=== PATIENT | male | born 1960 | race Caucasian/White ===

== ENCOUNTER 2016-07-07 20:00 | Inpatient (IN) | payer MEDICAID ==
--- NOTE | ~2016-07-07 | HP ---
Unit #: [id number] #: [id number] Patient: CRISTO AGGARWAL [id number] [place] [address] [id number] I MR#: [id number] NAME: CRISTO AGGARWAL ROOM: 81 Age: 56 Sex: M Admission Date: 07/08/2016 : 1960 Attending Physician: Hernando Reis M.D. Admitting Physician: Hernando Reis M.D. Primary Care Physician: Generic Doctor Not In System HISTORY AND PHYSICAL HISTORY OF PRESENT ILLNESS Cristo is a 56-year-old male admitted on 07/08/2016 to [facility] for detox from alcohol. PAST MEDICAL HISTORY None. PAST SURGICAL HISTORY None. SOCIAL HISTORY He smokes one-half pack of cigarettes daily. Drinks 12-pack of beer daily. No illegal drug use. He is currently single and homeless. FAMILY HISTORY Noncontributory. REVIEW OF SYSTEMS CONSTITUTIONAL: No fever or chills. HEENT: Denies any sore throat, ear pain or runny nose. CARDIOVASCULAR: Denies chest pain, irregular heart rhythm or palpitations. CHEST: Denies shortness of breath or cough. No hemoptysis. GASTROINTESTINAL: Denies nausea, vomiting, diarrhea or chronic constipation. ENDOCRINE: Denies history of increased thirst or urination. No recent significant weight loss or gain. GENITOURINARY: Denies dysuria, frequency, or hematuria. SKIN: Denies any rashes. HEMATOLOGIC: Denies history of increased bleeding or bruising. MUSCULOSKELETAL: Denies any hot, swollen joints. No generalized muscle pain. NEUROLOGIC: Denies problems with vision or speech. No frequent, severe headaches. No numbness, tingling or weakness in any extremities. Denies loss of bladder or bowel control. CURRENT MEDICATIONS None. ALLERGIES None. Unit #: [id number] #: [id number] Patient: CRISTO AGGARWAL PHYSICAL EXAMINATION GENERAL: Alert, oriented, in no acute distress. VITAL SIGNS: Blood pressure 147/82, heart rate 62, respirations 18, temperature 97.6. HEIGHT: 6 foot 1 inches. WEIGHT: 175 pounds. SKIN: Warm and dry without rash or lesion. HEENT: Normocephalic. TMs not viewed. Oral and nasal passages clear. Conjunctivae clear. PERRLA. EOMs intact. NECK: Supple without lymphadenopathy or thyromegaly. HEART: Regular rate and rhythm without murmur. LUNGS: Clear. ABDOMEN: Soft, nontender, without masses or hepatosplenomegaly. : Not done. EXTREMITIES: No evidence of cyanosis, clubbing or edema. Moves all without focal deficit. NEUROLOGICAL: Grossly within normal limits. Cranial Nerves: II: Visual ramsey are intact. III, IV AND : Extraocular movements are intact. Pupils are equal, round and reactive to light. V: Facial sensation is grossly normal. VII: Facial movements and expression are normal. VIII: Auditory acuity grossly intact. IX, X: Uvula is midline. Phonation is normal. XI: Patient shrugs shoulders and turns head normally. XII: Tongue protrudes in the midline. Sensory and Motor Function: Sensory and motor sensation is grossly normal. Motor: moves all extremities well. Coordination: Gait is normal. Deep Tendon Reflexes: Intact. IMPRESSION Psychiatric admission. RECOMMENDATIONS Psychiatric, per psychiatrist. MEDICAL: I see no contraindications to participating in facility's activities. MEDICAL PROGNOSIS Good. MEDICAL CONDITION Stable. Dictated by... Jayesh Diop/sophy TD: 07/09/2016 04:16 JOB #: [id number] Unit #: [id number] #: [id number] Patient: CRISTO AGGARWAL HISTORY AND PHYSICAL Page 1 of 1 X LIZ SIMS APRN X HISTORY AND PHYSICAL
--- NOTE | ~2016-07-07 | PN ---
Unit #: [id number] #: [id number] Patient: CRISTO AGGARWAL [id number] [facility] [address] [place] [address] [id number] I MR#: [id number] NAME: CRISTO AGGARWAL ROOM: [facility] Age: 56 Sex: M Admission Date: 07/08/2016 : 1960 Attending Physician: Hernando Reis M.D. Admitting Physician: Hernando Reis M.D. Primary Care Physician: Generic Doctor Not In System [facility] PROGRESS NOTES DATE 07/09/2016 DISCUSSION Mr. Cristo Aggarwal is a 56-year-old male seen on 07/09/2016. The patient interviewed, chart reviewed. Obtained information from nursing staff. The patient needing one to one monitoring. Still having shakes, withdrawal symptoms from alcohol. The patient guarded, flat affect, sad, dysphoric mood. The patient was able to participate in some group but needing one to one monitoring for safety. Complete review of systems unremarkable. MENTAL STATUS EXAMINATION General appearance, the patient dressed casually. Attention span and concentration fair. Oriented to place and person. Mood and affect labile. Speech monotone. Thought process concrete. The patient denied any thoughts of harming self or others. Recent and remote memory poor. Insight and judgement poor. DIAGNOSES Alcohol use disorder severe Mood disorder NOS ASSESSMENT/PLAN Advise to continue with current medication and therapeutic protocol. If needed consider further adjustment of medication. Dictated by... Meena Adame/sophy TD: 07/10/2016 21:59 JOB #: [id number] Unit #: [id number] #: [id number] Patient: CRISTO AGGARWAL PROGRESS NOTES Page 1 of 1 X Hernando Reis MD PROGRESS NOTE
--- NOTE | ~2016-07-07 | DS ---
Unit #: [id number] #: [id number] Patient: CRISTO AGGARWAL [id number] [facility] [address] [place] [address] [id number] I MR#: [id number] NAME: CRISTO AGGARWAL ROOM: [facility] Age: 56 Sex: M Admission Date: 07/08/2016 : 1960 Discharge Date: 07/12/2016 Attending Physician: Hernando Reis M.D. Primary Care Physician: Generic Doctor Not In System DISCHARGE SUMMARY REASON FOR ADMISSION Substance abuse, alcohol abuse. DIAGNOSTIC STUDIES LABORATORY RESULTS: Remarkable for urine drug screen positive for benzos, BUN 8, AST 45. HOSPITAL COURSE The patient was admitted to inpatient unit on 07/08/2016 and discharged on 07/12/2016. The patient was treated on the inpatient unit with chemical dependency group, expressive therapy, medication management, psychoeducation, psychotherapy, and structured milieu. The patient participated in treatment, able to maintain safe behavior, completed detox. Subsequently, the patient was discharged with a plan to follow up in outpatient program. DISCHARGE MEDICATIONS None. DISCHARGE DIAGNOSES Psychiatric: Alcohol use disorder, severe, F10.20; mood disorder, not otherwise specified, F32.9. Secondary diagnosis: Deferred. Medical diagnosis: None. Stressors: Psychosocial stressors. DISCHARGE INSTRUCTIONS The patient to follow up in outpatient clinic as per social media specialist. CONDITION ON DISCHARGE The patient was pleasant and cooperative. Denied any psychotic symptom or any suicidal ideation. PROGNOSIS Guarded. DIET AND ACTIVITY As tolerated. Unit #: [id number] #: [id number] Patient: CRISTO AGGARWAL Dictated by... Meena Adame/ana TD: 07/12/2016 15:58 JOB #: [id number] DISCHARGE SUMMARY Page 1 of 1 X Hernando Reis MD X DISCHARGE SUMMARY
--- NOTE | ~2016-07-07 | PN ---
Unit #: [id number] #: [id number] Patient: CRISTO AGGARWAL [id number] [facility] [address] [place] [address] [id number] I MR#: [id number] NAME: CRISTO AGGARWAL ROOM: [facility] Age: 56 Sex: M Admission Date: 07/08/2016 : 1960 Attending Physician: Hernando Reis M.D. Admitting Physician: Hernando Reis M.D. Primary Care Physician: Generic Doctor Not In System [facility] PROGRESS NOTES DATE 07/10/2016 DISCUSSION Cristo Aggarwal is a 56-year-old male seen on 07/10/2016. Patient interviewed. Chart reviewed. Obtained information from nursing staff. Patient currently has one to one monitoring due to fall precaution. Vital signs stable. Patient withdrawn, isolative, flat affect, eating good, sleeping good. Patient was able to attend some group. If doing well, plan to consider dc'ing one to one. Complete review of system unremarkable. MENTAL STATUS EXAMINATION General appearance, patient dressed casually. Attention span, concentration fair. Oriented in place and person. Mood and affect sad, dysphoric. Speech monotone. Thought process concrete. Patient denied any thoughts of harming self or others. Recent and remote memory poor. Insight and judgement poor. DIAGNOSES 1. Alcohol use disorder, severe. 2. Mood disorder NOS. ASSESSMENT/PLAN Advised to continue with current medication and therapeutic protocol. If needed, consider further adjustment of medication. Dictated by... Meena Adame/bunny TD: 07/11/2016 18:43 JOB #: [id number] Unit #: [id number] #: [id number] Patient: CRISTO AGGARWAL PROGRESS NOTES Page 1 of 1 X Hernando Reis MD PROGRESS NOTE
--- NOTE | ~2016-07-07 | PN ---
Unit #: [id number] #: [id number] Patient: CRISTO AGGARWAL [id number] [facility] [address] [place] [address] [id number] I MR#: [id number] NAME: CRISTO AGGARWAL ROOM: [facility] Age: 56 Sex: M Admission Date: 07/08/2016 : 1960 Attending Physician: Hernando Reis M.D. Admitting Physician: Meena Adame PROGRESS NOTES DATE OF SERVICE: 07/11/2016 DISCUSSION Cristo Aggarwal is a 56-year-old male, seen on 07/11/2016. The patient interviewed, chart reviewed, and obtained information from nursing staff. The patient tolerating medication fairly well and making progress. Reports decrease in withdrawal symptoms and decrease in tremors. The patient sleeping good. Vital signs; temperature 97.4, heart rate 90, respiratory rate 16, and blood pressure 129/86. REVIEW OF SYSTEMS Complete review of systems unremarkable. MENTAL STATUS EXAMINATION General appearance, the patient dressed casually. Attention span and concentration, fair. Oriented in place and person. Mood and affect, labile. Speech, monotone. Thought process, concrete. The patient denied any thoughts of harming self or others. Recent and remote memory, poor. Insight and judgment, poor. DIAGNOSES Alcohol use disorder, severe and mood disorder, not otherwise specified. ASSESSMENT AND PLAN Advised to continue with current medication and therapeutic protocol. If needed, consider further adjustment of medication. Dictated by... Meena Adame/ana TD: 07/13/2016 14:07 JOB #: [id number] Unit #: [id number] #: [id number] Patient: CRISTO AGGARWAL PROGRESS NOTES Page 1 of 1 X Hernando Reis MD NOTE
--- NOTE | ~2016-07-07 | PA ---
Unit #: [id number] #: [id number] Patient: CRISTO AGGARWAL [id number] [place] [address] [id number] MR#: [id number] NAME: CRISTO AGGARWAL ROOM: [facility] Age: 56 Sex: M Admission Date: 07/08/2016 : 1960 Date of Assessment: Attending Physician: Hernando Reis M.D. Admitting Physician: Hernando Reis M.D. Primary Care Physician: Generic Doctor Not In System PSYCHIATRIC ASSESSMENT INFORMANTS The patient reliability, fair informant; chart reliability, good. CHIEF COMPLAINT Alcohol abuse and withdrawal. HISTORY OF PRESENT ILLNESS Mr. Castellon is a 56-year-old white male, presented with the above-mentioned complaint. [facility], currently homeless, unemployed. Reported needing help with drinking. The patient reported needing detox. The patient reports that he would like to go and live in a sober living with support. The patient reported drinking at least 12 or more beers. Denied any suicidal or homicidal ideation. Denied any psychotic symptom. The patient reported tobacco use, age of onset 17; alcohol, age of onset 21. Longest period of sobriety five days, last period of sobriety 11/2015. The patient denied any history of any black out, HIV, hepatitis, or any IV drug use, but reported headaches, sleep problem, tremor, poor concentration, depressed mood, restlessness. PAST PSYCHIATRIC HISTORY Remarkable for history of outpatient treatment through [facility], [facility], AA meeting. FAMILY HISTORY Unremarkable for any psychiatric illness in the family. No known history of any abuse. SOCIAL HISTORY The patient currently unemployed, homeless. MEDICAL HISTORY Remarkable for history of withdrawal seizures. Musculoskeletal; muscle strength and tone, no atrophy or abnormal movement. Gait normal. MEDICATION HISTORY None. ALLERGIES No known drug allergies. SUBSTANCE ABUSE HISTORY Please see above. Unit #: [id number] #: [id number] Patient: CRISTO AGGARWAL REVIEW OF SYSTEMS HEENT: Eyes; clear. Ears, nose, mouth, and throat; clear. CARDIOVASCULAR: Unremarkable. RESPIRATORY: Unremarkable. GI: Unremarkable. : Unremarkable. SKIN: Unremarkable. LYMPH NODE: Unremarkable. NEUROLOGIC: Unremarkable. ENDOCRINE: Unremarkable. HEMATOLOGIC: Unremarkable. ALLERGIC/IMMUNOLOGIC: Unremarkable. MUSCULOSKELETAL: Muscle strength and tone, no atrophy or abnormal movement. Gait abnormal and gross tremors. MENTAL STATUS EXAMINATION CONSTITUTIONAL: Measurement of vital signs; temperature 97.6, pulse 62, respiratory rate 18, blood pressure 147/82, height 6 feet 1 inch, weight 175 pounds. GENERAL APPEARANCE: The patient dressed casually. The patient did not show any facial deformity. MUSCULOSKELETAL: Please see above. PSYCHIATRIC EXAMINATION Description of speech is slow. Description of thought process, circumstantial. Description of association, guarded. Description of abnormal psychotic thinking; the patient denied any hallucination or delusions, but mood lability and substance abuse. Description of the patient's judgment, concerning everyday activity, poor. Social situation, poor. Concerning psychiatric condition, poor. Complete mental status examination; oriented in time, place, and person. Recent and remote memory, fair. Attention span and concentration, fair. Language; able to name object and repeat phrases. Fund of knowledge, aware of current event and past history. Vocabulary, intact. Mood and affect; sad and dysphoric. Insight and judgment, fair to poor. ASSETS AND LIABILITIES Assets, the patient is articulate and able to take care of his ADL. Liability, history of substance abuse and depression. ADMITTING DIAGNOSES Psychiatric: Alcohol use disorder, severe, F10.20; mood disorder, not otherwise specified, F32.9. Secondary diagnosis: Deferred. Medical diagnosis: None. Stressors: Psychosocial stressor. PSYCHIATRIC PLAN 1. Advised to admit the patient on the inpatient unit. Provide safe, supportive, and structured environment. 2. Ordered labs; CBC, CMP, UA, and UDS. 3. Medical consult to evaluate the patient's medical condition. 4. Detox protocol, detox monitoring, one-to-one monitoring for the patient's safety. Unit #: [id number] #: [id number] Patient: CRISTO AGGARWAL TREATMENT GOAL To attain euthymic mood, gain insight into his problem, and learn coping skills. DISCHARGE PLAN Plan to stabilize the patient and consider followup in outpatient program. ESTIMATED LENGTH OF STAY 5 days. Dictated by... Hernando Reis M.D. MONIK/ana TD: 07/08/2016 21:06 JOB #: [id number] PSYCHIATRIC ASSESSMENT Page 1 of 1 X Smiley,Hernando STEVENS X PSYCHIATRIC ASSESSMENT
[2016-07-08 11:24] LABS: BASOPHIL% 1.2 % (0-2.5); EOSINOPHIL# 0.1 X10e3 (0-0.7); EOSINOPHIL% 2.9 % (0.0-7.0); HEMATOCRIT 39.4 % (38.0-50.0); HEMOGLOBIN 13.1 gm/dL (13.0-16.0); LYMPHOCYTE# 1.6 X10e3 (1.0-3.5); LYMPHOCYTE% 43.4 % (17.0-45.0); MEAN CELL VOLUME 99.6 FL (83-96); MEAN CORPUSCULAR HGB CONC 33.2 g/dL (30-36); MEAN PLATELET VOLUME 9.2 FL (6.5-11.5); MONOCYTE# 0.5 X10e3 (0-1.0); MONOCYTE% 14.1 % (3.0-12.0); NEUTROPHIL# 1.4 X10e3 (1.5-7.1); NEUTROPHIL% 38.4 % (40-75); PLATELET COUNT 136 X10e3 (140-420); RED BLOOD COUNT 3.96 X10e (3.90-5.60); RED CELL DISTRIBUTION WIDTH 13.4 % (11.0-15.5); WHITE BLOOD COUNT 3.7 X10e3 (4.0-10.5)
[2016-07-08 11:35] LABS: DIFF IND NO
[2016-07-08 11:52] LABS: BILIRUBIN,TOTAL 0.7 mg/dL (0.2-2.0); BUN/CREATININE RATIO 11.42; CALCIUM SERUM 8.6 mg/dL (8.4-10.2); CREATININE SERUM 0.7 mg/dL (0.6-1.4); GLOM FILT RATE Estimated 104.8 mL/min (>60); POTASSIUM 3.7 mmol/L (3.5-5.1)
[2016-07-10 09:41] LABS: URINE APPEARANCE CLEAR; URINE BILIRUBIN NEG (NEG); URINE BLOOD NEG (NEG); URINE COLOR DK YELLOW; URINE GLUCOSE NEG (NEG); URINE KETONE NEG (NEG); URINE LEUKOCYTE ESTERASE NEG (NEG); URINE NITRATE NEG (NEG); URINE PH 6.5 (5-8); URINE PROTEIN NEG (NEG); URINE SPECIFIC GRAVITY 1.017 (1.003-1.035)
[2016-07-10 09:54] LABS: AMPHETAMINE NEG (NEG); BARBITURATES NEG (NEG); BENZODIAZEPINES POS (NEG); COCAINE NEG (NEG); MARIJUANA NEG (NEG); OPIATES NEG (NEG); TRICYCLIC ANTIDEPRESSANTS NEG (NEG); U METHADONE NEG (NEG)
== END 2016-07-12 12:25 | DRG 897 ==
LOC: P1E 07-08 00:58
PROVIDERS: Psychiatry & Neurology Psychiatry
PROC: HZ2ZZZZ Detoxification Services for Substance Abuse Treatment (ICD-10-PCS; principal; 2016-07-08)
DX: F10.20 Alcohol dependence, uncomplicated (principal); F39 Unspecified mood [affective] disorder; Z59.0 Homelessness; F17.210 Nicotine dependence, cigarettes, uncomplicated
CPT/HCPCS: 80053; 80307; 81003; 85025; 86592

== ENCOUNTER 2016-08-07 | Inpatient (IN) | payer MEDICAID ==
--- NOTE | ~2016-08-07 | PN ---
Unit #: [id number] #: [id number] Patient: CRISTO BATRES [id number] [facility] [address] [place] [address] [id number] I MR#: [id number] NAME: CRISTO BATRES. ROOM: 74 Age: 56 Sex: M Admission Date: 08/07/2016 : 1960 Attending Physician: Hernando Reis M.D. Admitting Physician: Hernando Reis M.D. Primary Care Physician: Meena Ramos PROGRESS NOTES DATE OF SERVICE 08/10/2016 DISCUSSION Mr. Cristo Batres is a 56-year-old male seen on 08/10/2016. The patient interviewed, chart reviewed. Obtained information from nursing staff. The patient continues to be anxious, nervous, withdrawn, isolative. Hand tremors, but reports feeling overall better. The patient's vital signs: 98.4, pulse 119, blood pressure 119/84. Complete Review of Systems: Unremarkable. MENTAL STATUS EXAMINATION General Appearance: The patient dressed casually. Attention span, concentration: Fair. Oriented in place and person. Mood and affect labile. Speech: Monotone. Thought process: [place]. The patient denied any thoughts of harming self or others. Recent and remote memory: Poor. Insight and judgment: Poor. DIAGNOSIS Alcohol use disorder, severe. ASSESSMENT/PLAN Advised to continue with current medication and therapeutic protocol. If needed, consider further adjustment of medication. Dictated by... Meena Adame/rochelle TD: 08/11/2016 08:57 JOB #: [id number] Unit #: [id number] #: [id number] Patient: CRISTO BATRESOLIVA PROGRESS NOTES Page 1 of 1 X Hernando Reis MD X PROGRESS NOTE
--- NOTE | ~2016-08-07 | PN ---
Unit #: [id number] #: [id number] Patient: CRISTO AGGARWAL [id number] [facility] [address] [place] [address] [id number] I MR#: [id number] NAME: CRISTO AGGARWAL. ROOM: 74 Age: 56 Sex: M Admission Date: 08/07/2016 : 1960 Attending Physician: Hernando Reis M.D. Admitting Physician: Hernando Reis M.D. Primary Care Physician: Meena Ramos PROGRESS NOTES DATE OF SERVICE: 08/08/2016 DISCUSSION Mr. Cristo Villavicencio is a 56-year-old male, seen on 08/08/2016. The patient currently on detox protocol, still somewhat anxious, nervous, hand tremors. Vital signs; temperature 98.7, pulse 77, respirations 16, and blood pressure 100/65. The patient is withdrawn, isolative, flat affect. Complete review of systems unremarkable. MENTAL STATUS EXAMINATION General appearance, the patient dressed casually. Attention span and concentration, fair. Oriented in place and person. Mood and affect, labile. Speech, monotone. Thought process, concrete. The patient denied any thoughts of harming self or others, but guarded. Recent and remote memory, poor. Insight and judgment, poor. DIAGNOSES Alcohol use disorder, severe. ASSESSMENT AND PLAN Advised to continue with current detox protocol and treatment. If needed, consider further adjustment of medication. Dictated by... Meena Adame/ana TD: 08/08/2016 19:09 JOB #: [id number] [facility] PROGRESS NOTES Page 1 of 1 X Hernando Reis MD X PROGRESS NOTE
--- NOTE | ~2016-08-07 | PN ---
Unit #: [id number] #: [id number] Patient: CRISTO BATRES [id number] [facility] [address] [place] [address] [id number] I MR#: [id number] NAME: CRISTO BATRES. ROOM: [facility] Age: 56 Sex: M Admission Date: 08/07/2016 : 1960 Attending Physician: Hernando Reis M.D. Admitting Physician: Hernando Reis M.D. Primary Care Physician: Meena Ramos PROGRESS NOTES DATE OF SERVICE: 08/09/2016 DISCUSSION Mr. Cristo Batres is a 56-year-old male, seen on 08/09/2016. The patient interviewed, chart reviewed, and obtained information from nursing staff. The patient continues to be isolative, flat affect, sad, dysphoric, mildly tremulous. The patient reports still having withdrawal symptoms. Vital signs; temperature 97.9, pulse 101, blood pressure 115/84. REVIEW OF SYSTEMS Complete review of systems unremarkable. MENTAL STATUS EXAMINATION General appearance; the patient is dressed casually. Attention span and concentration, fair. Oriented in place and person. Mood and affect, labile. Speech, monotone. Thought process, concrete. The patient denied any thoughts of harming self or others. Recent and remote memory, poor. Insight and judgment, poor. DIAGNOSES 1. Alcohol use disorder, severe. 2. Mood disorder, not otherwise specified. ASSESSMENT/PLAN Advised to continue with current medication and therapeutic protocol. If needed, consider further adjustment of medication. Dictated by... Meena Adame/ana TD: 08/10/2016 01:52 JOB #: [id number] Unit #: [id number] #: [id number] Patient: CRISTO BATRES [facility] PROGRESS NOTES Page 1 of 1 X Hernando Reis MD PROGRESS NOTE
--- NOTE | ~2016-08-07 | PN ---
Unit #: [id number] #: [id number] Patient: CRISTO BATRES [id number] [facility] [address] [place] [address] [id number] I MR#: [id number] NAME: CRISTO BATRES. ROOM: [facility] Age: 56 Sex: M Admission Date: 08/07/2016 : 1960 Attending Physician: Hernando Reis M.D. Admitting Physician: Hernando Reis M.D. Primary Care Physician: Meena Ramos PROGRESS NOTES DATE 08/11/2016 DISCUSSION Mr. Cristo Batres is a 56-year-old male seen on 08/11/2016. Patient interviewed. Chart reviewed. Obtained information from nursing staff. Patient was compliant, cooperative, reported feeling better, decrease in anxiety, depression and tremors. Patient was able to sleep good. Compliant with medication. Currently on detox protocol. Complete review of system unremarkable. MENTAL STATUS EXAMINATION General appearance, patient dressed casually. Attention span, concentration fair. Oriented in place and person. Mood and affect labile. Speech monotone. Thought process concrete. Patient denied any thoughts of harming self or others. Recent and remote memory poor. Insight and judgement poor. Patient is still having elevated vital signs such as temperature 98.4, 119, 119/84. DIAGNOSES 1. Alcohol abuse disorder, moderate to severe, F10.20. 2. Mood disorder NOS. ASSESSMENT/PLAN Advised to continue with current therapies and treatment on the inpatient unit and detox protocol if needed. Consider further adjustment of medication. Dictated by... Meena Adame/bunny TD: 08/11/2016 21:35 JOB #: [id number] Unit #: [id number] #: [id number] Patient: CRISTO BATRES [place] PROGRESS NOTES Page 1 of 1 X Hernando Reis MD PROGRESS NOTE
--- NOTE | ~2016-08-07 | DS ---
Unit #: [id number] #: [id number] Patient: CRISTO AGGARWAL [id number] [facility] [address] [place] [address] [id number] I MR#: [id number] NAME: CRISTO AGGARWAL. ROOM: [facility] Age: 56 Sex: M Admission Date: 08/07/2016 : 1960 Discharge Date: 08/13/2016 Attending Physician: Hernando Reis M.D. Primary Care Physician: Shahida Sanders M.D. DISCHARGE SUMMARY REASON FOR ADMISSION Alcohol detox. DIAGNOSTIC STUDIES Laboratory data, remarkable for BUN 7, AST 52. HOSPITAL COURSE The patient was admitted to inpatient unit on August 07 and discharged on August 13, 2016. The patient was treated with the detox protocol, detox monitoring, chemical dependency group, the patient was responsive to treatment and subsequently the patient was discharged with the plan to follow up in outpatient program. DISCHARGE DIAGNOSES [place] I Alcohol use disorder, severe, F10.20. Mood disorder, NOS, F32.9. Aurora II Deferred. Aurora III None. Aurora IV Psychosocial stressor. Aurora V INSTRUCTIONS TO PATIENT The patient is to follow up in outpatient clinic as well as director social service. DISCHARGE MEDICATIONS None. CONDITION AT DISCHARGE The patient is pleasant, cooperative, denied any psychotic symptoms or any suicidal ideation. PROGNOSIS Guarded. DIET AND ACTIVITY Diet and activity as tolerated. Dictated by... Unit #: [id number] #: [id number] Patient: CRISTO AGGARWAL Meena Adame/trudy TD: 08/14/2016 12:14 JOB #: [id number] DISCHARGE SUMMARY Page 1 of 1 X Hernando Reis MD X DISCHARGE SUMMARY
--- NOTE | ~2016-08-07 | PN ---
Unit #: [id number] #: [id number] Patient: CRISTO BATRES [id number] [facility] [address] [place] [address] [id number] MR#: [id number] NAME: CRISTO BATRES. ROOM: [facility] Age: 56 Sex: M Admission Date: 08/07/2016 : 1960 Attending Physician: Hernando Reis M.D. Admitting Physician: Hernando Reis M.D. Primary Care Physician: Meena Ramos PROGRESS NOTES DATE OF SERVICE 08/12/16 DISCUSSION Mr. Cristo Batres is a 56-year-old male seen on 08/12/16. Patient interviewed, chart reviewed, I obtained information from nursing staff. Patient currently on detox protocol, making progress. Vital signs stable: 98.0, 18, 106/66. Mild tremors. Gait normal. Still somewhat anxious, nervous. Compliant with medication. COMPLETE REVIEW OF SYSTEMS Unremarkable. MENTAL STATUS EXAMINATION GENERAL APPEARANCE: Patient dressed casually. ATTENTION SPAN AND CONCENTRATION: Fair. Oriented in place and person. MOOD AND AFFECT: Labile. SPEECH: Regular rate. THOUGHT PROCESS: Goal directed. Patient denied any thoughts of harming self or others, or any psychotic symptom. RECENT AND REMOTE MEMORY: Poor. INSIGHT AND JUDGMENT: Poor. DIAGNOSIS Alcohol use disorder, severe ASSESSMENT/PLAN Advised to continue with current medication and therapeutic protocol. If needed, consider further adjustment in medication. Dictated by... Meena Adame/rafaela TD: 08/12/2016 22:38 JOB #: [id number] Unit #: [id number] #: [id number] Patient: CRISTO BATRES PROGRESS NOTES Page 1 of 1 X Hernando Reis MD PROGRESS NOTE
--- NOTE | ~2016-08-07 | PA ---
Unit #: [id number] #: [id number] Patient: CRISTO BATRES [address] [place] [address] [id number] I MR#: [id number] NAME: CRISTO BATRES. ROOM: 74 Age: 56 Sex: M Admission Date: 08/07/2016 : 1960 Date of Assessment: 08/07/2016 Attending Physician: Hernando Reis M.D. Admitting Physician: Hernando Reis M.D. Primary Care Physician: Shahida Sanders M.D. PSYCHIATRIC ASSESSMENT INFORMANTS The patient reliability, fair informant and chart reliability, good. CHIEF COMPLAINT Alcohol detox. HISTORY OF PRESENT ILLNESS Mr. Cristo Batres is a 56-year-old male, presented with the above-mentioned complaint. The patient has a history of previous treatment at [facility], last one in 06/2016 for detox. The patient presented at [facility] and wanted detox from alcohol. The patient reported that he has fallen on his head and caused the head to bleed. The patient has been drinking when he fell. The patient reported he relapsed 2 days after being discharged from this facility on 07/14/2016. The patient reported wanting help for detox. The patient reported decreased sleep and decreased appetite. Reported he is currently homeless with no family support. The patient denied any homicidal ideation. The patient feeling sad, depressed, and unkempt. The patient has a history of tobacco use, age of onset 17 and alcohol, age of onset 21, using 12 beers daily. The patient reported last sobriety was 8 years ago, last period of sobriety on 07/14/2016. The patient reported multiple problems due to drinking such as legal problem, unemployment, housing, family relationship, and health due to falling. The patient reported history of blackout. No history of any HIV, hepatitis, history of withdrawal symptoms, or IV drug use. Currently, having headache, sleep problems, tremor, nervousness, poor concentration, depressed mood, restlessness, and diaphoresis. Needing inpatient admission at this time for psychiatric stabilization. PAST PSYCHIATRIC HISTORY Remarkable for history of previous treatment at [facility], last admission on 07/08/2016. History of treatment through [facility], AA meeting. FAMILY HISTORY The patient's family history is unremarkable. No known history of any psychiatric illness in the family. SOCIAL HISTORY The patient currently unemployed and homeless. MEDICAL HISTORY Remarkable for history of withdrawal seizure. Musculoskeletal; muscle strength and tone, no atrophy or abnormal movement. Gait normal. Unit #: [id number] #: [id number] Patient: CRISTO BATRES MEDICATION HISTORY None. ALLERGIES No known drug allergies. SUBSTANCE ABUSE HISTORY Please see above. REVIEW OF SYSTEMS HEENT: Eyes, clear. Ears, nose, mouth, and throat; clear. CARDIOVASCULAR: Unremarkable. RESPIRATORY: Unremarkable. GI: Unremarkable. : Unremarkable. SKIN: Unremarkable. LYMPH NODE: Unremarkable. NEUROLOGIC: Unremarkable. ENDOCRINE: Unremarkable. HEMATOLOGIC: Unremarkable. ALLERGIC/IMMUNOLOGIC: Unremarkable. MUSCULOSKELETAL: Muscle strength and tone, no atrophy or abnormal movement. Gait normal, except tremors. MENTAL STATUS EXAMINATION CONSTITUTIONAL: Measurement of vital signs; temperature 98.1, heart rate 64, respiratory rate 16, and blood pressure 144/81. Height 6 feet 1 inch. GENERAL APPEARANCE: The patient dressed casually. The patient did not show any facial deformity. MUSCULOSKELETAL: Please see above. PSYCHIATRIC EXAMINATION Description of speech, regular rate and normal volume. Description of thought process, goal directed. Description of association, intact. Description of abnormal psychotic thinking; the patient denied any hallucinations or delusions, but sad, depressed, substance abuse, and above-mentioned symptom. Description of the patient's judgment: Concerning everyday activity, poor. Social situation, poor. Concerning psychiatric condition, poor. Complete mental status examination; oriented in time, place, and person. Recent and remote memory, fair. Attention span and concentration, fair. Language, able to name object and repeat phrases. Fund of knowledge, aware of current event and passive vocabulary intact. Mood and affect, sad and dysphoric. Insight and judgment, fair to poor. ASSETS AND LIABILITIES Assets, the patient is articulate and able to take care of his ADL. Liability, history of substance abuse and depression. ADMITTING DIAGNOSES Psychiatric: Alcohol use disorder, severe, F10.20 and mood disorder, not otherwise specified, F32.9. Secondary diagnosis: Deferred. Medical diagnosis: None. Unit #: [id number] #: [id number] Patient: CRISTO BATRES Stressors: Psychosocial stressor. PSYCHIATRIC PLAN AND TREATMENT GOAL AND DISCHARGE PLAN 1. Advised to admit the patient on the inpatient unit. Provide safe, supportive, and structured environment. 2. Ordered labs; CBC, CMP, UA, and UDS. 3. Medical consult to evaluate the patient's medical condition. 4. Detox protocol and detox monitoring. The patient to be monitored closely. If needed, consider further adjustment of medication. The patient to attend all the programing including group therapy, individual therapy, and chemical dependency group. TREATMENT GOAL To attain euthymic mood, gain insight into his problem, and learn coping skills. DISCHARGE PLAN Plan to stabilize the patient and consider followup in outpatient program. ESTIMATED LENGTH OF STAY 5 days. Dictated by... Meena Adame/ana TD: 08/07/2016 16:28 JOB #: [id number] PSYCHIATRIC ASSESSMENT Page 1 of 1 X Hernanod Reis MD X PSYCHIATRIC ASSESSMENT
--- NOTE | ~2016-08-07 | HP ---
Unit #: [id number] #: [id number] Patient: CRISTO AGGARWAL [id number] [place] [address] [id number] MR#: [id number] NAME: CRISTO AGGARWAL. ROOM: 74 Age: 56 Sex: M Admission Date: 08/07/2016 : 1960 Attending Physician: Hernando Reis M.D. Admitting Physician: Hernando Reis M.D. Primary Care Physician: Shahida Sanders M.D. HISTORY AND PHYSICAL HISTORY OF PRESENT ILLNESS Cristo is a 56 year old, admitted to [facility] because of his continued abuse of alcohol. PAST MEDICAL HISTORY 1. Long history of alcohol abuse. 2. High blood pressure. PAST SURGICAL HISTORY Nothing reported. ALLERGIES No known drug allergies. SOCIAL HISTORY Smokes one half pack per day, drinks, at least twelve beers on a daily basis and denies illicit drug use. FAMILY HISTORY Medically noncontributory. REVIEW OF SYSTEMS CONSTITUTIONAL: No fever or chills. HEENT: Denies any sore throat, ear pain or runny nose. CARDIOVASCULAR: Denies chest pain, irregular heart rhythm or palpitations. CHEST: Denies shortness of breath or cough. No hemoptysis. GASTROINTESTINAL: Denies nausea, vomiting, diarrhea or chronic constipation. ENDOCRINE: Denies history of increased thirst or urination. No recent significant weight loss or gain. GENITOURINARY: Denies dysuria, frequency, or hematuria. SKIN: Denies any rashes. HEMATOLOGIC: Denies history of increased bleeding or bruising. MUSCULOSKELETAL: Denies any hot, swollen joints. No generalized muscle pain. NEUROLOGIC: Denies problems with vision or speech. No frequent, severe headaches. No numbness, tingling or weakness in any extremities. Denies loss of bladder or bowel control. CURRENT MEDICATIONS Detox protocol PHYSICAL EXAMINATION Unit #: [id number] #: [id number] Patient: CRISTO AGGARWAL GENERAL: Alert, well-nourished, no apparent distress. VITAL SIGNS: Blood pressure 144/80, heart rate 80, respirations 16, and temperature 98.6. WEIGHT: 170 pounds. HEIGHT: 6 feet 1 inch. SKIN: Warm and dry without rash or lesion. HEENT: Normocephalic. TMs not viewed. Oral and nasal passages clear. Conjunctivae clear. PERRLA. EOMs intact. NECK: Supple without lymphadenopathy or thyromegaly. HEART: Regular rate and rhythm without murmur. LUNGS: Clear. ABDOMEN: Soft, nontender. : Not done. EXTREMITIES: No evidence of cyanosis, clubbing or edema. Moves all without focal deficit. NEUROLOGICAL: Grossly within normal limits. Cranial Nerves: II: Visual ramsey are intact. III, IV AND : Extraocular movements are intact. Pupils are equal, round and reactive to light. V: Facial sensation is grossly normal. VII: Facial movements and expression are normal. VIII: Auditory acuity grossly intact. IX, X: Uvula is midline. Phonation is normal. XI: Patient shrugs shoulders and turns head normally. XII: Tongue protrudes in the midline. Sensory and Motor Function: Sensory and motor sensation is grossly normal. Motor: moves all extremities well. Coordination: Gait is normal. Deep Tendon Reflexes: Intact. IMPRESSION Psychiatric admission. RECOMMENDATIONS Psychiatric, per psychiatrist. MEDICAL I see no contraindications to participating in facility's activities. MEDICAL PROGNOSIS Good. MEDICAL CONDITION Stable. Dictated by... Shelli Menendez P.A.-C. for Meena Nicole/trudy TD: 08/08/2016 08:10 JOB #: [id number] Unit #: [id number] #: [id number] Patient: CRISTO AGGARWAL HISTORY AND PHYSICAL Page 1 of 1 X Shelli Menendez HISTORY AND PHYSICAL
[2016-08-07 09:54] LABS: BASOPHIL% 0.9 % (0-2.5); EOSINOPHIL# 0.1 X10e3 (0-0.7); EOSINOPHIL% 1.2 % (0.0-7.0); HEMATOCRIT 35.5 % (38.0-50.0); HEMOGLOBIN 11.8 gm/dL (13.0-16.0); LYMPHOCYTE# 1.4 X10e3 (1.0-3.5); LYMPHOCYTE% 25.5 % (17.0-45.0); MEAN CELL VOLUME 100.5 FL (83-96); MEAN CORPUSCULAR HEMOGLOBIN 33.4 PG (28-34); MEAN CORPUSCULAR HGB CONC 33.2 g/dL (30-36); MEAN PLATELET VOLUME 9.9 FL (6.5-11.5); MONOCYTE# 0.7 X10e3 (0-1.0); MONOCYTE% 13.2 % (3.0-12.0); NEUTROPHIL# 3.2 X10e3 (1.5-7.1); NEUTROPHIL% 59.2 % (40-75); PLATELET COUNT 102 X10e3 (140-420); RED BLOOD COUNT 3.53 X10e (3.90-5.60); RED CELL DISTRIBUTION WIDTH 14.6 % (11.0-15.5); WHITE BLOOD COUNT 5.4 X10e3 (4.0-10.5)
[2016-08-07 10:01] LABS: ALBUMIN SERUM 3.9 g/dL (3.5-5.0); BILIRUBIN,TOTAL 0.8 mg/dL (0.2-2.0); CREATININE SERUM 0.5 mg/dL (0.6-1.4); GLOM FILT RATE Estimated 120.3 mL/min (>60); POTASSIUM 3.9 mmol/L (3.5-5.1); PROTEIN TOTAL SERUM 6.6 g/dL (6.0-8.3)
[2016-08-07 10:06] LABS: DIFF IND NO
[2016-08-08 10:07] LABS: AMPHETAMINE NEG (NEG); BARBITURATES NEG (NEG); BENZODIAZEPINES NEG (NEG); COCAINE NEG (NEG); MARIJUANA NEG (NEG); OPIATES NEG (NEG); TRICYCLIC ANTIDEPRESSANTS NEG (NEG); U METHADONE NEG (NEG)
[2016-08-09 10:28] LABS: URINE APPEARANCE CLOUDY; URINE BILIRUBIN NEG (NEG); URINE BLOOD NEG (NEG); URINE COLOR DK YELLOW; URINE GLUCOSE NEG (NEG); URINE KETONE NEG (NEG); URINE LEUKOCYTE ESTERASE NEG (NEG); URINE NITRATE NEG (NEG); URINE PROTEIN NEG (NEG); URINE SPECIFIC GRAVITY 1.017 (1.003-1.035)
== END 2016-08-13 11:42 | DRG 897 ==
LOC: P1E 03:14
PROVIDERS: Psychiatry & Neurology Psychiatry
PROC: HZ2ZZZZ Detoxification Services for Substance Abuse Treatment (ICD-10-PCS; principal; 2016-08-07)
DX: F10.20 Alcohol dependence, uncomplicated (principal); F39 Unspecified mood [affective] disorder; I10 Essential (primary) hypertension; F17.210 Nicotine dependence, cigarettes, uncomplicated
CPT/HCPCS: 80053; 80307; 81003; 85025; 86592